=== PATIENT | female | born 1985 | race Caucasian/White ===

== ENCOUNTER 2019-04-24 15:01 | Outpatient (CLI) | payer BC, SELFPAY ==
--- NOTE | ~2019-04-24 | US_ITS ---
EXAMINATION: US venous doppler [facility] EXAM DATE: 04/24/2019 15:56 INDICATION: Left leg pain. TECHNIQUE: Multiple grayscale, color flow and Doppler images of the left lower extremity deep venous system were obtained and reviewed. There is no prior study for comparison. FINDINGS: The left common femoral, femoral and profunda veins demonstrate normal color flow, respirat ory variation, augmentation and compressibility. Compressibility, color flow confirmed within the le ft popliteal, posterior tibial, peroneal, and greater saphenous veins. IMPRESSION: 1. No left lower extremity deep venous thrombosis. Reviewed, dictated and finalized at location A. EKEEPING COORDINATOR
--- NOTE | ~2019-04-24 | XR_ITS ---
XR lumbar spine 2-3V DATE: 04/24/2019 15:40 INDICATION: Low back pain. No known injury. TECHNIQUE: AP, lateral, coned lateral lumbosacral views COMPARISON: None FINDINGS: A catheter device overlies the upper abdomen. There are 4 functional lumbar vertebrae and a lumbosacral transitional vertebra. No fracture or bone destruction is evident. The included lower thoracic and lumbar pedicles are intac t. There is mild degenerative spurring of the included lower thoracic and lumbar vertebral bodies. Marlee mbar interspaces are relatively preserved. The sacroiliac joints appear normal. IMPRESSION: Transitional lumbosacral vertebra Mild degenerative change Reviewed, dictated and finalized at location B. E [facility]THO
== END 2019-04-24 15:02 | disposition home or self-care (01) ==
LOC: ANHIMG 15:09
PROVIDERS: PCP Family Medicine; Visit Provider Family Medicine
DX: M79.605 Pain in left leg (principal); M51.36 Other intervertebral disc degeneration, lumbar region
CPT/HCPCS: 72100; 93971

== ENCOUNTER → 2020-11-25 02:48 | Outpatient (CLI) | payer OTHER, SELFPAY ==
[2020-11-25 18:57] LABS: SARS-CoV-2 RNA PCR Positive
== END ==
PROVIDERS: PCP Family Medicine; Visit Provider Family Medicine
DX: U07.1 COVID-19 (principal)
CPT/HCPCS: C9803; U0003; U0005

== ENCOUNTER 2021-11-23 11:38 | Outpatient (CLI) | payer OTHER, SELFPAY ==
[2021-11-23 12:33] LABS: Hematocrit 38.4 % (37.0-47.0); Hemoglobin 12.2 g/dL (12.0-15.0); Mean Corpuscular HGB Conc 31.8 g/dl (32-36); Mean Corpuscular Hemoglobin 29.9 pg (26-34); Mean Corpuscular Volume 94.1 fl (80-100); Mean Platelet Volume 9.6 fl (7.4-10.4); Platelet Count Result 288 k/mm3 (150-375); Red Blood Count 4.08 M/mm3 (4.2-5.4); Red Cell Distribution Width 12.4 % (11.5-14.5); White Blood Count 5.8 K/mm3 (4.5-10.0)
[2021-11-23 12:43] LABS: Alanine Aminotransferase 12 U/L (6-35); Albumin Level 4.3 g/dL (3.5-5.1); Alkaline Phosphatase 46 U/L (38-126); Anion Gap 11 mmol/L (8-16); Aspartate Amino Transferase 24 U/L (14-36); Bilirubin,Total 0.6 mg/dL (0.2-1.3); Blood Urea Nitrogen 10 mg/dL (7-17); Calcium 8.6 mg/dL (8.4-10.2); Carbon Dioxide 27 mmol/L (22-30); Chloride 102 mmol/L (98-107); Cholesterol 176 mg/dL (0-200); Estimated Glomerular Filt Rate > 60; Glucose 87 mg/dL (65-110); HDL Direct 40 mg/dL; Potassium 4.4 mmol/L (3.4-5.0); Sodium 140 mmol/L (137-145); Triglycerides 42 mg/dL (<150)
[2021-11-23 12:48] LABS: Hemoglobin A1C 4.9 % (<5.7)
[2021-11-23 12:54] LABS: LDL Cholesterol Direct 104 mg/dL
[2021-11-23 13:23] LABS: HIV 1/2 Ab P24 Ag Result Negative (Negative)
[2021-11-24 16:51] LABS: Rapid Plasma Reagin Non-Reactive (NonReactive)
== END 2021-11-23 11:39 | disposition home or self-care (01) ==
PROVIDERS: PCP Family Medicine; Referring Provider Nurse Practitioner Family; Visit Provider Nurse Practitioner Family
DX: Z00.01 Encounter for general adult medical examination with abnormal findings (principal); Z13.29 Encounter for screening for other suspected endocrine disorder; Z13.220 Encounter for screening for lipoid disorders; Z13.89 Encounter for screening for other disorder; Z13.1 Encounter for screening for diabetes mellitus; Z11.3 Encounter for screening for infections with a predominantly sexual mode of transmission
CPT/HCPCS: 36415; 80053; 80061; 83036; 84443; 85027; 86592; 86703; G0432